=== PATIENT | male | born 1965 | race Caucasian/White ===

== ENCOUNTER → 2018-02-13 | Outpatient (CLI) | payer BC ==
--- NOTE | 2018-02-13 15:14 | US ---
EXAMINATION TYPE: US abdomen complete DATE OF EXAM: 02/13/2018 COMPARISON: NONE CLINICAL HISTORY: R10.13 EPIGASTRIC PAIN. Epigastric pain especially after meals; diabetic, coronary artery stent EXAM MEASUREMENTS: Liver Length: 15.0 cm Gallbladder Wall: .2 cm CBD: 0.6 cm Spleen: 9.4 cm Right Kidney: 11.2 x 7.2 x 6.1 cm Left Kidney: 11.5 x 5.7 x 6.1 cm Pancreas: Heterogeneous Liver: fatty liver with area of focal sparing (hypoechoic area = 3.1 x 3.3 x 7.5cm seen in right lob e) Gallbladder: wnl Evidence for sonographic Brice's sign: no CBD: upper limits of normal Spleen: wnl Right Kidney: No hydronephrosis or masses seen Left Kidney: No hydronephrosis or masses seen Upper IVC: wnl Abd Aorta: upper aorta limitedly seen due to overlying bowel gas, but size is wnl Visualized pancreas is heterogeneous. Visualized liver is heterogeneously hyperechoic without intrahe patic ductal dilatation. Evaluation for focal masses is suboptimal due to the heterogeneity. IMPRESSION: No shadowing mobile gallstones or ultrasound evidence for acute cholecystitis. Suspected diffuse fatty infiltration of liver.
== END | disposition home or self-care (01) ==
LOC: RADUSWWP 07:31
PROVIDERS: ATTEND Family Medicine
DX: R10.13 Epigastric pain (principal)
CPT/HCPCS: 76700

== ENCOUNTER 2018-02-24 07:22 | Day surgery (SDC) | payer BC ==
[2018-02-20 13:04] VITALS: BMI 29.6
[~2018-02-24 07:22] MED LIST: LACTATED RINGERS 1,000 ML IV SCH; LIDOCAINE 1% 20 ML VIAL (10MG/ML) FOR IV START INTRADERMA PRN
[2018-02-24 07:35] VITALS: TEMP 98
[2018-02-24] MEDS ORDERED: LACTATED RINGERS 1,000 ML IV ONE (07:35)
[2018-02-24 07:40] LABS: Glucose,Whole Blood 188 mg/dL (75-99)
[2018-02-24] MEDS ORDERED: PROPOFOL 10 MG/ML 20 ML VIAL IV ONE (08:00)
[2018-02-24 08:27] VITALS: RESP 16
--- NOTE | 2018-02-24 08:35 | P.PCN ---
Date of Procedure: 02/24/18 Procedure(s) Performed: Procedure: Esophagogastroduodenoscopy and biopsy. Preoperative diagnosis: Epigastric pain. Postoperative diagnosis: 1. Gastritis and duodenitis. 2. Biopsies obtained from the duodenum, antrum, cardia and esophagus. Preparation and sedation: Was provided by anesthesia. Brief clinical history: The patient is a 52-year-old male who is scheduled for this evaluation because of epigastric pain and reflux type symptoms that he has been experiencing on and off over the last year and they may have been more pronounced for the last month or 2. No alarm symptoms such as bleeding or weight loss. He does have intermittent dysphagia. He was started on acid suppressive medications but he has not taken it yet. Procedure: With the patient on his left lateral decubitus position and after informed consent and adequate sedation, I passed the Olympus-GIF 160 video upper endoscope through the cricopharyngeus down the esophagus. GE junction was around 39 cm from the incisors and there was no definite hiatal hernia. The most proximal aspects of the cardia showed edema erythema and friability but no ulcers or tumors. The esophagus did not show any obvious esophagitis or any strictures or Hyde's esophagus. The endoscope was then passed into the stomach which was insufflated with air and inspected in detail including the retroflex view in the cardia. There was mottling and erythema in the antrum and minimal friability but no ulcers or erosions. Pyloric channel did not show any ulcers. Duodenal bulb, post bulbar area and descending duodenum showed erythema and friability. I obtained multiple biopsies from the duodenum, antrum , cardia and esophagus then the endoscope was withdrawn. The patient tolerated the procedure well. Plan: The patient was reassured. Will await biopsy results and make further plans based on his course and biopsy results.
[2018-02-24 08:43] VITALS: BP 107/74; PULSE 73
== END 2018-02-24 09:18 | disposition home or self-care (01) ==
LOC: ORWHC2ENDO 07:22
DX: K29.50 Unspecified chronic gastritis without bleeding (principal); K29.80 Duodenitis without bleeding; I10 Essential (primary) hypertension; E78.5 Hyperlipidemia, unspecified; I25.10 Atherosclerotic heart disease of native coronary artery without angina pectoris; E11.9 Type 2 diabetes mellitus without complications; Z95.5 Presence of coronary angioplasty implant and graft; Z79.84 Long term (current) use of oral hypoglycemic drugs; Z79.82 Long term (current) use of aspirin; Z79.899 Other long term (current) drug therapy
CPT/HCPCS: 88305; 43239; J2704

== ENCOUNTER → 2018-03-13 | Outpatient (CLI) | payer BC ==
--- NOTE | 2018-03-13 12:00 | FL ---
EXAMINATION TYPE: FL UGI air w esophagus DATE OF EXAM: 03/13/2018 10:21 AM COMPARISON: NONE CLINICAL HISTORY: Difficulty in swallowing. Preliminary view of the abdomen reveals a normal bowel gas pattern. Upper GI examination was performed according to the air contrast technique. Barium and effervescent crystal was swallowed without difficulty or delay. Esophageal peristalsis and motility are within no rmal limits. Mild gastroesophageal reflux without reflux esophagitis. Small sliding-type and reducibl e hiatal hernia. The stomach has a normal appearance in terms of its size, shape and location. No ga stric filling defects or ulcer craters are seen. The duodenal bulb and sweep are also free of intral uminal lesion or ulcer crater. And single contrast cervical esophagram was also performed following the ingestion of thin liquid bar ium. There is no evidence for aspiration or penetration. No masses are seen. No filling defects ar e evident. IMPRESSION: Mild gastroesophageal reflux without reflux esophagitis. Small sliding-type and reducible hiatal saritha ia.
== END ==
LOC: RADFLWHC 09:34
PROVIDERS: ATTEND Family Medicine
DX: K21.9 Gastro-esophageal reflux disease without esophagitis (principal); K44.9 Diaphragmatic hernia without obstruction or gangrene
CPT/HCPCS: 74246

== ENCOUNTER → 2019-12-09 | Outpatient (CLI) | payer BC ==
--- NOTE | 2019-12-09 22:08 | MR ---
EXAMINATION TYPE: MR angio head wo con DATE OF EXAM: 12/09/2019 COMPARISON: None HISTORY: R 49, headaches CONTRAST: None TECHNIQUE: Multiplanar multiecho imaging on a 3.0 Breanne magnet is performed through the native of Ezequiel lis. 3-D [id number]-ki-twqbej imaging is performed. Source images are reviewed on the computer in the axi al plane. Reconstructed images rotating on the computer are reviewed. FINDINGS: The internal carotid arteries bifurcate normally into A1 and M1 segments. Right A1 segment is slightly hypoplastic. The A2 segments are normal. Middle cerebral artery branches are normal. Anterior communicating artery is patent. The right posterior communicating artery is patent. The left posterior communicating artery is patent. Vertebrobasilar arteries within the jwouo-ej-tuox are normal. Right vertebral artery is dominant. Po sterior cerebral vasculature is normal. No suspicious aneurysm or aneurysmal dilatation is evident. No obstructions are identified. No significant flow-limiting stenosis is evident. IMPRESSIONS: 1. NORMAL MRA [place] OF BERNABE.
--- NOTE | 2019-12-09 22:27 | MR ---
EXAMINATION TYPE: MR brain wo/w con DATE OF EXAM: 12/09/2019 COMPARISON: None HISTORY: Memory loss and headaches CONTRAST: Performed utilizing 7.5 mL intravenous Gadavist gadolinium contrast. TECHNIQUE: Multiplanar, multiecho imaging on a 3.0 Breanne magnet is performed through the brain. Stud y is performed within 24 hours of arrival to the hospital. The craniovertebral junction is normal. The pituitary is normal. Diffusion-weighted imaging is performed. No abnormal hyperintensity is present to suggest an acute i ntracranial infarct or acute ischemic change. Signal through the brain appears normal. No mass lesions are evident. No suspicious enhancement is ev ident. Ventricles and sulci are appropriate for the patient age. IMPRESSIONS: 1. No acute intracranial changes.
== END | disposition home or self-care (01) ==
LOC: RADMRIMAIN 20:35
PROVIDERS: ATTEND Family Medicine
DX: R51 Headache (principal)
CPT/HCPCS: 70544; 70553; A9585

== ENCOUNTER → 2022-03-22 | Outpatient (CLI) | payer BC ==
[2022-03-22 23:43] LABS: Anion Gap 14.3 mmol/L (10.00-18.00); Blood Urea Nitrogen 19.3 mg/dL (9.0-27.0); Carbon Dioxide 25.1 mmol/L (20.0-27.5); Non-African American GFR(CKD) 98.4 (60.0-200.0); Potassium 4.4 mmol/L (3.5-5.5)
== END | disposition home or self-care (01) ==
LOC: LABPAT 14:45
PROVIDERS: ATTEND Internal Medicine Cardiovascular Disease
DX: Z01.812 Encounter for preprocedural laboratory examination (principal); I25.10 Atherosclerotic heart disease of native coronary artery without angina pectoris
CPT/HCPCS: 36415; 80051; 82565; 84520; 85027

== ENCOUNTER 2022-03-26 07:10 | Day surgery (SDC) | payer BC ==
[2022-03-22 15:53] VITALS: BMI 28.9
[~2022-03-26 07:10] MED LIST changes: +ALPRAZolam 0.25 MG TAB PO PRN; +ALPRAZolam 0.5 MG TAB PO PRN; +ASPIRIN 325 MG TAB PO ONE; -LACTATED RINGERS 1,000 ML IV SCH; -LIDOCAINE 1% 20 ML VIAL (10MG/ML) FOR IV START INTRADERMA PRN; +NITROGLYCERIN SL TABS 0.4 MG TAB SUBLINGUAL PRN; +SODIUM CHLORIDE 0.9% 1,000 ML in EMPTY BAG 1 BAG IV SCH
[2022-03-26 07:29] VITALS: RESP 18; TEMP 98
[2022-03-26 07:35] LABS: Glucose,Whole Blood 151 mg/dL (70-110)
[2022-03-26 07:41] LABS: Basophils % (A) 1 %; Eosinophils # (A) 0.1 k/uL (0-0.7); Eosinophils % (A) 2 %; HCT 47.8 % (39.0-53.0); HGB 15.5 gm/dL (13.0-17.5); Hypochromasia Slight; Lymphocytes # (A) 1.9 k/uL (1.0-4.8); Lymphocytes % (A) 25 %; MCH 28.2 pg (25.0-35.0); MCHC 32.4 g/dL (31.0-37.0); MCV 87.1 fL (80.0-100.0); Mean Platelet Volume 8.8; Monocytes # (A) 0.5 k/uL (0-1.0); Monocytes % (A) 7 %; Neutrophils # (A) 4.8 k/uL (1.3-7.7); Neutrophils % (A) 64 %; Platelet Count 201 k/uL (150-450); RBC 5.49 m/uL (4.30-5.90); RDW 13.5 % (11.5-15.5); WBC 7.5 k/uL (3.8-10.6)
[2022-03-26] MEDS ORDERED: VERAPAMIL 2.5 MG/ML 2 ML AMP ONE (08:55)
[2022-03-26] MEDS ORDERED: fentaNYL (PF) 50 MCG/ML 2 ML AMP ONE (08:55)
[2022-03-26] MEDS ORDERED: HEPARIN SODIUM 1,000 UN/ML (10ML VL) ONE (08:55)
[2022-03-26] MEDS: MIDAZOLAM 2 MG/2 ML VIAL IV ONE ×2 (09:06→09:42)
[2022-03-26] MEDS ORDERED: fentaNYL (PF) 50 MCG/ML 2 ML AMP IV ONE ×2 (09:06→12:29)
[2022-03-26] MEDS ORDERED: LIDOCAINE 1% INJ 10MG/ML (5 ML VIAL-PF) SQ ONE ×2 (09:08→12:30)
[2022-03-26] MEDS ORDERED: VERAPAMIL SYRINGE (5 MG/10 ML) INTRAARTER ONE ×2 (09:10→12:31)
[2022-03-26] MEDS ORDERED: HEPARIN SODIUM 1,000 UN/ML (10ML VL) IV ONE ×2 (09:13→12:33)
[2022-03-26] MEDS ORDERED: IOPAMIDOL-370 125ML BTL INJ ONE ×2 (09:42→13:08)
[2022-03-26] MEDS ORDERED: CLOPIDOGREL 75 MG TAB PO STA (10:58)
--- NOTE | 2022-03-26 11:22 | CC ---
CARDIAC CATHETERIZATION REPORT INDICATION: Known coronary artery disease, status post prior angioplasty of LAD, had a recent stress test that shows moderate area of ischemia involving right coronary artery distribution due to which after understanding risks, benefits, the patient opted to undergo cardiac catheterization for further evaluation. PROCEDURE NOTE: After obtaining informed consent, left heart catheterization and coronary angiogram were performed via the right radial artery using standard Mauro catheters. The patient tolerated the procedure well without any obvious immediate complications. Received moderate conscious sedation. Total sedation time was 18 minutes. We obtained right radial artery access using Seldinger technique. A 6-Latvian sheath was placed. Catheters and wires were floated into the ascending aorta under fluoroscopic guidance. The patient received 5 mg of verapamil and 4000 units of intravenous heparin per protocol. FINDINGS: 1. Hemodynamics: Left ventricular end-diastolic pressure is 17 mm. There is no significant gradient across the aortic valve. 2. Aortogram: Aortogram is not performed. 3. Left ventriculogram: Left ventriculogram is not performed. 4. Angiographic data : a.Left main coronary artery: Left main coronary artery is a normal-sized vessel and is free of stenosis. Divides into left anterior descending coronary artery and circumflex coronary artery. Circumflex coronary artery and its branches are free of significant stenosis. Left anterior descending coronary artery shows a patent stent within the proximal portion with the mid LAD showing a 70% stenosis, but the whole vessel mid to distal area is small and appears diffusely diseased. Right coronary artery is a dominant vessel that shows a 70% to 80% stenosis as it bifurcates into PDA and PLV and the PDA itself has another focal 90% stenosis. CONCLUSIONS: Patent stent within the proximal LAD, mbjkydcp-bt-yxykeq disease involving mid-to- distal LAD and focal stenotic lesion within the right coronary artery that explains patient's stress test. I reviewed angiographic data with Dr. Estrella, the helminthologist, who performed his angioplasty in 2008, who will attempt angioplasty with stent placement of the right coronary artery. I discussed these issues with the patient. He understands and is in agreement with the plans that Dr. Estrella has an emergency at [facility] and he is going to take care of the angioplasty as soon as it is feasible. MMODL / IJN: [id number] /
--- NOTE | 2022-03-26 11:22 | LTR ---
Dear Chandra: I performed cardiac catheterization on Fabio Bui. A detailed catheterization note is enclosed for your records. In brief, the cardiac catheterization reveals patent stent within the proximal LAD and a focal critical stenosis involving the PDA and the distal right coronary artery. The patient will undergo angioplasty of the same. Thank you for giving me the privilege to participate in the care of this pleasant gentleman. MMDCL / IJMarly: [id number] /
[2022-03-26] MEDS ORDERED: IV FLUID CONTINUATION 1,000 ML IV ONE (12:20)
[2022-03-26] MEDS ORDERED: NITROGLYCERIN 1000MCG/10ML SYRINGE INTRACORON ONE (12:41)
[2022-03-26] MEDS ORDERED: NITROGLYCERIN SL TABS 0.4 MG TAB SUBLINGUAL PRN (13:07)
[2022-03-26] MEDS ORDERED: MAG HYDROX/AL HYDROX/SIMETH 30 ML CUP PO PRN (13:07)
[2022-03-26] MEDS ORDERED: ZOLPIDEM 5 MG TAB PO PRN (13:07)
[2022-03-26] MEDS ORDERED: ATROPINE SULFATE 0.1 MG/ML 10ML SYRINGE IV PRN (13:07)
[2022-03-26] MEDS ORDERED: RX INFO: IV CONTRAST WAS GIVEN 1 EACH MISC MISCELLANE PRN (13:07)
[2022-03-26] MEDS ORDERED: SODIUM CHLORIDE 0.9% 1,000 ML in EMPTY BAG 1 BAG IV SCH (13:15)
--- NOTE | 2022-03-26 13:15 | P.CARDCATH ---
Date of Procedure: 03/26/22 Description of Procedure: PERCUTANEOUS TRANSLUMINAL CORONARY ANGIOPLASTY CLINICAL INFORMATION: The patient is a 56-year-old male with known history of hypertension, hyperlipidemia and diabetes, history of CAD who had an abnormal MPI, underwent cardiac catheterization by Dr. Ray and was found to have severe obstructive disease involving the distal RCA and PDA. Recommendations were made regarding angioplasty and stenting. The procedure as well as the risks and the complications were discussed with the patient who was in full understanding and agreement. PROCEDURE: Using guidewire exchange technique the 6-Anguillan sheath in the right radial artery was exchanged to a new 6-Anguillan sheath. A 6 Anguillan 0.75 AL guiding catheter was introduced into the system. After cannulating the right coronary ostium, a 0.014 BMW J was advanced across the lesion and positioned distally. Following that a 2.0 x 12 mm Treck balloon was advanced and inflated at 8 atmosphere. Following that a 2.25 x 28 mm Xience. stent was deployed. It was dilated at 16. After removing the balloon 2.75 x 8 mm NC Treck balloon was advanced and when inflation at 10 peter in the proximal segment of the stent was done. After the last inflation, after appropriate wait, the balloon and the guidewire were withdrawn back into the guiding catheter. Images were obtained and repeated. Those images reveal stable successful stenting. At that point, the guiding catheter, the balloon, and guidewire were removed. The sheath was removed. Hemostasis was obtained with deployment of a TR band. There were no immediate complications. The patient was returned to the room in stable condition. Of note, the patient received 5500 units of heparin as well as Plavix. His ACT was followed. There was no immediate complications. RESULTS: Successful stenting of the distal RCA and PDA with reduction of stenosis from 99 % to 0 %. RECOMMENDATIONS: The patient will continue on aspirin and Plavix for 6 months without any interruption in addition to aggressive coronary risks modifications. The findings and recommendations were discussed with the patient and the family, they are in full understanding and agreement. Duration of sedation: 30 minutes
[2022-03-26 17:09] VITALS: BP 113/63; PULSE 88
[2022-03-26] MEDS ORDERED: ATORVASTATIN 80 MG TAB PO SCH (21:00)
[2022-03-27] MEDS ORDERED: PANTOPRAZOLE 40 MG TABLET PO SCH (07:30)
[2022-03-27] MEDS ORDERED: lisinopriL 5 MG TAB PO SCH (09:00)
[2022-03-27] MEDS ORDERED: CLOPIDOGREL 75 MG TAB PO SCH (09:00)
[2022-03-27] MEDS ORDERED: PIOGLITAZONE 30 MG TAB PO SCH (09:00)
[2022-03-27] MEDS ORDERED: ASPIRIN 81 MG PO SCH (09:00)
[2022-03-27] MEDS ORDERED: DAPAGLIFLOZIN PROPANEDIOL 10 MG TABLET PO SCH (09:00)
[2022-03-30] MEDS ORDERED: NON FORMULARY DRUG (Dulaglutide [Trulicity] 0.75 MG/0.5 ML Each) SQ SCH (13:09)
== END 2022-03-26 17:09 | disposition home or self-care (01) ==
LOC: CATHCVL 07:10
PROVIDERS: ATTEND Internal Medicine Cardiovascular Disease
DX: I25.10 Atherosclerotic heart disease of native coronary artery without angina pectoris (principal); I10 Essential (primary) hypertension; E78.5 Hyperlipidemia, unspecified; E11.9 Type 2 diabetes mellitus without complications; Z79.82 Long term (current) use of aspirin; Z79.899 Other long term (current) drug therapy; Z95.5 Presence of coronary angioplasty implant and graft
CPT/HCPCS: 93458; 85025; C9600; C1769 ×2; C1887; C1894; C1725 ×2; C1874; J2250; J2001; J3010; J1644; Q9967

== ENCOUNTER 2023-09-15 10:22 | Emergency (ER) | payer BC ==
[2023-09-15 10:28] VITALS: TEMP 98.4
[2023-09-15] MEDS: ORPHENADRINE 30 MG/ML 2 ML VIAL IM STA (11:07)
--- NOTE | 2023-09-15 11:22 | ED ---
Neck Injury/Pain HPI - General Chief Complaint: Neck Pain/Injury Stated Complaint: stiff neck Time Seen by Provider: 09/15/23 11:18 Source: patient, RN notes reviewed Mode of arrival: ambulatory Limitations: no limitations - History of Present Illness Initial Comments: 58-year-old male presented to the ER with a chief complaint of stiff neck. He states he woke up on Saturday morning with a stiff neck and it has been persistent. He states has been painful to look rcks-sp-dxet or up and down. He does report mild radiation to his shoulders. He denies any known injuries or traumas. States he has been massaging, heating and taking btsq-tqc-xrtuysl ibuprofen without relief. Patient does state he found 2 ticks on him approximately 3 weeks ago and he is concerned of possible Lyme's disease. He denies any erythema migrans, myalgias, fevers or chills. Denies chills, cough, congestion, chest pain, shortness of breath, abdominal pain or peripheral edema. - Related Data Home Medications Medication Instructions Recorded Confirmed Atorvastatin [Lipitor] 80 mg PO HS 03/03/14 03/26/22 Lisinopril [Prinivil] 5 mg PO DAILY 03/03/14 03/26/22 metFORMIN HCL [Glucophage] 1,000 mg PO BID 03/03/14 03/26/22 Aspirin [Adult Low Dose Aspirin EC] 81 mg PO DAILY 06/14/21 03/26/22 Dulaglutide [Trulicity] 0.75 mg SQ FR 06/14/21 03/26/22 Empagliflozin [Jardiance] 25 mg PO DAILY 06/14/21 03/26/22 Omeprazole 20 mg PO DAILY 06/14/21 03/26/22 Pioglitazone [Actos] 30 mg PO DAILY 06/14/21 03/26/22 Previous Rx's Medication Instructions Recorded Clopidogrel [Plavix] 75 mg PO DAILY #90 tablet 03/26/22 Nitroglycerin Sl Tabs [Nitrostat] 0.4 mg SUBLINGUAL Q5M PRN #25 tab 03/26/22 Cyclobenzaprine [Flexeril] 10 mg PO TID PRN #15 tab 09/15/23 Allergies Allergy/AdvReac Type Severity Reaction Status Date / Time No Known Allergies Allergy Verified 09/15/23 10:26 Review of Systems ROS Statement: Those systems with pertinent positive or pertinent negative responses have been documented in the HPI. ROS Other: All systems not noted in ROS Statement are negative. Past Medical History Past Medical History: Diabetes Mellitus, GERD/Reflux, Hyperlipidemia, Hypertension History of Any Multi-Drug Resistant Organisms: None Reported Past Surgical History: Heart Catheterization With Stent, Hernia Repair Additional Past Surgical History / Comment(s): COLONOSCOPY, BILAT CATARACTS REMOVED WITH LENS IMPLANTS Past Anesthesia/Blood Transfusion Reactions: No Reported Reaction Date of Last Stent Placement:: 2008 Past Psychological History: No Psychological Hx Reported Smoking Status: Never smoker - Past Family History Mother Family Medical History: Cancer General Exam Limitations: no limitations General appearance: alert, in no apparent distress Head exam: Present: atraumatic, normocephalic, normal inspection Eye exam: Present: normal appearance, PERRL, EOMI. Absent: scleral icterus, conjunctival injection, periorbital swelling Pupils: Present: normal accommodation (4mm bilaterally) ENT exam: Present: normal exam, normal oropharynx, mucous membranes moist, TM's normal bilaterally Neck exam: Present: tenderness (bilateral trapezius. Limited range of motion. negative brudiniski test. ) Respiratory exam: Present: normal lung sounds bilaterally. Absent: respiratory distress, wheezes, rales, rhonchi, stridor Cardiovascular Exam: Present: regular rate, normal rhythm, normal heart sounds. Absent: systolic murmur, diastolic murmur, rubs, gallop, clicks Skin exam: Present: warm, dry, intact, normal color. Absent: rash Course Vital Signs 09/15/23 09/15/23 10:26 13:04 Temperature 98.4 F Pulse Rate 95 91 Respiratory 18 16 Rate Blood Pressure 144/98 134/95 O2 Sat by Pulse 98 96 Oximetry Medical Decision Making - Medical Decision Making Was pt. sent in by a medical professional or institution (, PA, TABLE WORKER PACKAGER, urgent care, hospital, or [facility]...) When possible be specific @ -No Did you speak to anyone other than the patient for history (EMS, parent, family, police, friend...)? What history was obtained from this source @ -No Did you review nursing and triage notes (agree or disagree)? Why? @ -I reviewed and agree with nursing and triage notes Were old charts reviewed (outside hosp., previous admission, EMS record, old EKG, old radiological studies, urgent care reports/EKG's, [facility] records)? Report findings @ -No old charts were reviewed Differential Diagnosis (chest pain, altered mental status, abdominal pain women, abdominal pain men, vaginal bleeding, weakness, fever, dyspnea, syncope, headache, dizziness, GI bleed, back pain, seizure, CVA, palpatations, mental health, musculoskeletal)? @ -Differential Musculoskeletal: Muscular strain, contusion, ligament sprain, fracture, arthritis, septic arthritis, bursitis, cellulitis, muscle spasm, nerve compression, DVT, arterial occlusion, herpes zoster, electrolyte abnormality, tumor.... This is not meant to be in all inclusive list EKG interpreted by me (3pts min.). @ -None X-rays interpreted by me (1pt min.). @ -Cervical spine x-rays interpreted by me negative for acute process. CT interpreted by me (1pt min.). @ -None done U/S interpreted by me (1pt. min.). @ -None done What testing was considered but not performed or refused? (CT, X-rays, U/S, labs)? Why? @ -None What meds were considered but not given or refused? Why? @ -None Did you discuss the management of the patient with other professionals (professionals i.e. , PA, TABLE WORKER PACKAGER, lab, RT, psych nurse, social science professor, teacher asst, teacher, property officer, porter sample case)? Give summary @ -No Was smoking cessation discussed for >3mins.? @ -No Was critical care preformed (if so, how long)? @ -No Were there social determinants of health that impacted care today? How? (Homelessness, low income, unemployed, alcoholism, drug addiction, transportation, low edu. Level, literacy, decrease access to med. care, snf, rehab)? @ -No Was there de-escalation of care discussed even if they declined (Discuss DNR or withdrawal of care, Hospice)? DNR status @ -No What co-morbidities impacted this encounter? (DM, HTN, Smoking, COPD, CAD, Cancer, CVA, ARF, Chemo, Hep., AIDS, mental health diagnosis, sleep apnea, morbid obesity)? @ -Diabetes Was patient admitted / discharged? Hospital course, mention meds given and route, prescriptions, significant lab abnormalities, going to OR and other pertinent info. @ -Discharge. 58-year-old male presented to ER with chief complaint of neck stiffness. History and physical exam completed. Vitals stable. Patient in no signs of acute distress and nontoxic-appearing. Tenderness to trapezius muscle. Patient has limited range of motion due to pain. No rashes, bruising or erythema present. Negative Brudiniski sign. X-rays obtained negative for acute process. Patient reports that he found 2 ticks on him approximately 3 weeks ago. There is no erythema migrans, fever, myalgias or other concerning factors of Lyme disease. Patient received IM norflex for symptom control in the ER. Upon reevaluation, patient resting comfortably in exam room eager for discharge. Results discussed with patient, all questions answered. Advised close follow- up with orthopedics if symptoms persist, referral given. Flexeril prescribed. Conservative measures and return parameters discussed. Patient discharged in stable condition. Patient verbally expressed understanding and agreement with care plan. Case discussed with ED attending, Dr. Juan. Undiagnosed new problem with uncertain prognosis? @ -No Drug Therapy requiring intensive monitoring for toxicity (Heparin, Nitro, Insulin, Cardizem)? @ -No Were any procedures done? @ -No Diagnosis/symptom? @ -Torticollis Acute, or Chronic, or Acute on Chronic? @ -Acute Uncomplicated (without systemic symptoms) or Complicated (systemic symptoms)? @ -Uncomplicated Side effects of treatment? @ -No Exacerbation, Progression, or Severe Exacerbation? @ -No Poses a threat to life or bodily function? How? (Chest pain, [place], [place], pneumonia, PE, COPD, DKA, ARF, appy, cholecystitis, CVA, Diverticulitis, Homicidal, Suicidal, threat to staff... and all critical care pts) @ -No - Radiology Data Radiology results: report reviewed, image reviewed Disposition Clinical Impression: Torticollis Disposition: HOME SELF-CARE Condition: Stable Instructions (If sedation given, give patient instructions): Spasmodic Tor ticollis (ED) Additional Instructions: Please follow-up with orthopedics if symptoms persist. Return to the ER for any new or worsening concerns. I recommend heat, massage and stretching. Prescriptions: Cyclobenzaprine [Flexeril] 10 mg PO TID PRN #15 tab PRN Reason: Muscle Spasm Is patient prescribed a controlled substance at d/c from ED?: No Referrals: Chandra Scott MD [Primary Care Provider] - 1-2 days Tran Muniz DO [Doctor of Osteopathic Medicine] - 1-2 days Time of Disposition: 12:47
--- NOTE | 2023-09-15 12:15 | XR ---
EXAMINATION TYPE: XR cervical spine comp DATE OF EXAM: 09/15/2023 11:06 AM CLINICAL INDICATION:Male, 58 years old with history of stiff neck; [facility] COMPARISON: TECHNIQUE: The cervical spine was imaged in frontal, lateral, odontoid and bilateral oblique. FINDINGS: The osseous structures show preserved vertebral body heights and no evidence of acute fracture. Mild multilevel degenerative disc disease with trace anterolisthesis C3 on C4 and C4 on C5, and trace ret rolisthesis C5 on C6. No significant left neuroforaminal stenoses. There are mild to moderate right n euroforaminal stenoses at C3-C4, C4-C5, C5-C6. Pedicles appear intact.Dens and lateral masses appear intact and normally aligned. There are calcifications in the bilateral neck, left greater than right, likely related to the caroti d arteries. IMPRESSION: 1. No plain film evidence of fracture or dislocation. 2. Mild degenerative disc disease changes of the cervical spine.
[2023-09-15 13:06] VITALS: BP 134/95; PULSE 91; RESP 16
== END 2023-09-15 13:06 | disposition home or self-care (01) ==
LOC: EC 10:22
DX: M43.6 Torticollis (principal); E11.9 Type 2 diabetes mellitus without complications; Z79.84 Long term (current) use of oral hypoglycemic drugs
CPT/HCPCS: 72050; 99283; 96372; J2360

== ENCOUNTER → 2023-11-25 | Outpatient (CLI) | payer BC ==
[2023-11-25 15:36] LABS: ALT 39 U/L (10-49); AST 26 U/L (14-35); Albumin 4.5 g/dL (3.8-4.9); Albumin/Globulin Ratio 1.61 Ratio (1.60-3.17); Alkaline Phosphatase 72 U/L (41-126); Blood Urea Nitrogen 16.8 mg/dL (9.0-27.0); Calcium 9.9 mg/dL (8.7-10.3); Carbon Dioxide 23.9 mmol/L (21.6-31.8); Chloride 103 mmol/L (96-109); Chol/HDL Ratio 2.72 Ratio; Globulin 2.8 g/dL (1.6-3.3); Glucose 175 mg/dL (70-110); LDL Cholesterol,Calculated 62.3 mg/dL (0.0-131.0); Potassium 4.5 mmol/L (3.5-5.5); Sodium 142 mmol/L (135-145); Total Bilirubin 0.7 mg/dL (0.3-1.2); Total Protein 7.3 g/dL (6.2-8.2); VLDL Calculation 16.74 mg/dL (5.00-40.00)
== END | disposition home or self-care (01) ==
LOC: LABWHC1 11:25
PROVIDERS: ATTEND Internal Medicine Interventional Cardiology
DX: E78.2 Mixed hyperlipidemia (principal)
CPT/HCPCS: 36415; 80053; 80061